=== PATIENT | male | born 1945 | race Caucasian/White ===

== ENCOUNTER → 2021-10-22 | Day surgery (SDC) | payer MEDICARE, OTHER ==
[~2021-10-22] MED LIST: ANTIVERT25 MG PO; ASPIR 8181 MG PO; BENTYL 10 MG CA10 M1 PO; CLARITIN10 M3 PO; DICLOFENAC SODI75 MG PO; FLEXERIL PO; LIPITOR80 MG PO; MEDROLDOSEPACK PO; OXYCODONE HCL 55 MG PO; PERCOCET 5-3251 EACH PO; PROTONIX40 M1 PO; PROTONIX40 M2 PO; TRANSDERM-SCO1 PATC1 TD; TYLENOL ARTHRI650 MG PO; ZANTAC300 MG PO
--- NOTE | ~2021-10-22 | OP ---
[address] [address] OPERATIVE REPORT Name: PETER MORENO Room: [facility]#: [id number] Admission: 10/22/21 Attend Phys: Vito Huber DO Discharge: Date of : 43 Report #: [id number] THIS REPORT FOR: cc: Brandin Dillon,Brandin Leigh,Vito Plummer DO ~ cc: Brandin Dillon DO DATE OF SURGERY: 10/22/2021 REFERRING PHYSICIAN: Dr. Brandin Dillon. PREOPERATIVE DIAGNOSIS: Recurrent right inguinal hernia. POSTOPERATIVE DIAGNOSIS: Recurrent right inguinal hernia. PROCEDURES: Right recurrent inguinal hernia repair with extra large Bard mesh plug and patch. SURGEON: Vito Huber DO SCRAP SEPARATOR: Dr. Milton Francis, PGY-1 SECOND REFERRAL MANAGER: Student, Dr. Marcie Bustamante, MS-3. ANESTHESIA: General endotracheal. ESTIMATED BLOOD LOSS: Less than 20 mL COMPLICATIONS: None. DESCRIPTION OF PROCEDURE: After obtaining proper consents and discussing risks and complications as well as marking the patient in the preoperative holding area, he was taken to the operating room, laid in the supine position and administered general endotracheal anesthetic. He was then prepped and draped in the usual sterile fashion. A timeout was performed. We confirmed the appropriate patient and procedure. The site had been marked in the preoperative holding area. He had been given preoperative antibiotics as well. We then made an approximately 5 cm long incision through the patient's previous scar. This was carried down through the skin into the subcutaneous tissue using electrocautery for hemostasis. Once the external oblique fascia was encountered, it was incised along its fibers grasped and elevated with hemostats and then dissected free from the underlying internal oblique muscle and ilioinguinal nerve. There was surprisingly very little scar tissue from the patient's previous hernia repair and we were easily able to identify the ilioinguinal nerve and the internal oblique muscle. [place] [address] OPERATIVE REPORT Name: PETER MORENO Room: [facility]#: [id number] Admission: 10/22/21 Attend Phys: Vito Huber DO Discharge: Date of : 43 Report #: [id number] spermatic cord at this point and we elevated the spermatic cord up out of the incision. We identified a small cord lipoma and then after stripping down some of the cremasteric fibers, we were able to identify a moderate-sized indirect inguinal hernia. This hernia sac was completely dissected free from the cord and then reduced back into the peritoneal cavity. We then chose an extra-large Bard PerFix plug and this was placed through the internal ring. We then sutured the mesh using 0 PDS suture. The mesh was sutured to the shelving portion of the inguinal ligament to Nando's ligament and then also to the old mesh, which was identified medially. We then used the onlay mesh, which was placed over top of this and went around the cord. We sutured the mesh around the cord using 0 PDS suture as well. We then closed the external oblique fascia using a running 0 Vicryl suture. The subcutaneous tissues and fascia were injected with 0.5% Marcaine without epinephrine and then we closed the subcutaneous tissue using running 3-0 Vicryl suture. Skin was closed using a running 4-0 Monocryl and Dermabond. The patient was then awakened in the operating room and transported to recovery room in stable condition. Sponge, needle and instrument counts were all correct x 3 at the end of the procedure. By: [id number] Kavitha Huber DO /nt
[2021-10-22 06:42] LABS: HEMATOCRIT 44.2 % (42.0-52.0); HEMOGLOBIN 14.5 gm/dL (14.0-18.0); MCH 30.7 pg (26.0-34.0); MCHC 32.7 g/dL (28.0-37.0); MCV 93.8 fL (80.0-100.0); MPV 8.1 fl. (7.2-11.1); RBC 4.72 mil/uL (4.50-6.00); RDW-CV 13.9 % (10.5-14.5); WBC 7.9 thou/uL (4.0-11.0)
[2021-10-22 06:59] LABS: CALCIUM 8.7 mg/dL (8.5-10.1); CREATININE 1.2 mg/dL (0.6-1.3); POTASSIUM 3.8 mmol/L (3.5-5.1)
--- NOTE | 2021-10-23 15:13 | EKG ---
[place] [address] ELECTROCARDIOGRAM REPORT Name: PETER MORENO Room: [facility]#: [id number] Admission: 10/22/21 Attend Phys: Vito Huber DO Discharge: Date of : 43 Date of Service: 10/22/21 0732 Report #: [id number] THIS REPORT FOR: //name// [facility] Test Date: 2021-10-22 Test Time: 07:32:21 Pat Name: PETER MORENO Department: Room: Gender: Station Chief: : 1945 Requested By: Vito Huber Order Number: [id number] Reading MD: Ajti Araya Measurements Intervals [place] Rate: 63 P: -2 [place]: 133 QRS: -25 QRSD: 100 T: 39 QT: 423 QTc: 434 Interpretive Statements Sinus rhythm Borderline left axis deviation Abnormal R-wave progression, early transition Compared to ECG 01/13/2016 11:36:32 Sinus bradycardia no longer present Electronically Signed On 10-23-2021 15:13:18 [employer]ISING [employer]NA[employer] by Ajit Araya [email or web address] <ELECTRONICALLY SIGNED> By: Ajit Araya MD, FACC 10/23/21 1513 0732 0732 Ajit Araya MD, FAC /EPI
--- NOTE | 2021-10-26 18:06 | PATH ---
[address] [address] PATHOLOGY RPT PROCEDURE Name: PETER MORENO Room: [facility].#: [id number] Admission: 10/22/21 Date of : 43 Discharge: Report #: [id number] Path Case #: [id number] [facility] Accession Number: [id number] . 01 Material submitted: . inguinal area - CORD LIPOMA . 01 Clinical history: . HERNIA REPAIR, INGUINAL UNILATERAL RIGHT INGUINAL HERNIA . 02 Diagnosis: Cord lipoma: - Benign fibrofatty/fibrovascular tissue. (BREANA:pit; 10/26/2021) [facility] 10/26/2021 1226 Local . 02 Electronically signed: . Ta Aly MD, Pathologist NPI- [id number] . 01 Gross description: . Fixative: Formalin Labeled: Cord lipoma Specimen received: Single segment of partially encapsulated bright yellow lobulated tissue Dimensions: 3.3 x 2.5 x 0.7 cm External surface: Smooth to ragged Cut surface: Bright yellow, lobulated . [employer] sections are submitted in cassette A1. (CAA; 10/25/2021) QAC/QA 10/25/2021 1143 Local . 02 Pathologist provided ICD-10: K40.90 . 02 CPT . 820809 Specimen Comment: A courtesy copy of this report has been sent to [phone] Specimen Comment: [id number] Specimen Comment: Report sent to / DR SAWYER Performed at: [address], [place], [place] [id number] MD Hiren Baptiste MD Phone: [phone] Performed at: [address] [address] PATHOLOGY RPT PROCEDURE Name: PETER MORENO Room: [facility]#: [id number] Admission: 10/22/21 Date of : 43 Discharge: Report #: [id number] Path Case #: [id number] [address], [place] [id number] MD Ta Aly MD Phone: [phone]
== END | disposition home or self-care (01) ==
LOC: M.SUR 06:24
PROVIDERS: ATTEND Surgery
DX: K40.91 Unilateral inguinal hernia, without obstruction or gangrene, recurrent (principal); D17.6 Benign lipomatous neoplasm of spermatic cord; Z20.822 Contact with and (suspected) exposure to COVID-19